=== PATIENT | female | born 1985 | race Caucasian/White ===

== ENCOUNTER 2018-10-03 15:02 | Inpatient (IN) | payer OTHER ==
[2018-10-03] MEDS: ACETAMINOPHEN 500 MG TAB PO (19:20)
[2018-10-03 19:40] LABS: ADD MAN DIFF? NO
[2018-10-03 19:43] LABS: BASOPHIL # 0.1 10^3/ul (0.0-0.1); BASOPHILS % 0.3 % (0.0-2.0); EOSINOPHILS # 0.1 10^3/ul (0.0-0.5); EOSINOPHILS % 0.4 % (0.0-7.0); HEMOGLOBIN 12.4 g/dl (12.0-16.0); LYMPHOCYTES # 2.7 10^3/ul (0.8-2.9); LYMPHOCYTES % 13.7 % (15.0-51.0); MEAN CORPUSCULAR HEMOGLOBIN 27.2 pg (29.0-33.0); MEAN CORPUSCULAR HGB CONC 34.4 g/dl (32.0-37.0); MEAN CORPUSCULAR VOLUME 78.9 fl (82.0-101.0); MEAN PLATELET VOLUME 11.7 fl (7.4-10.4); MONOCYTE # 1.1 10^3/ul (0.3-0.9); MONOCYTES % 5.5 % (0.0-11.0); NEUTROPHILS % 79.6 % (39.0-77.0); PLATELET COUNT 273 10^3/UL (140-415); RED BLOOD COUNT 4.56 10^6/ul (4.20-5.40); RED CELL DISTRIBUTION WIDTH 13.8 % (11.5-14.5)
[2018-10-03 19:50] LABS: ADD UMIC YES; UR ASCORBIC ACID NEGATIVE (NEGATIVE); UR BILIRUBIN (Dip) NEGATIVE (NEGATIVE); UR BLOOD (Dip) 3+ mg/dL (NEGATIVE); UR CLARITY CLEAR (CLEAR); UR COLOR STRAW (YELLOW); UR GLUCOSE (Dip) NEGATIVE (NEGATIVE); UR KETONES (Dip) NEGATIVE (NEGATIVE); UR LEUKOCYTE ESTERASE (Dip) NEGATIVE Leu/ul (NEGATIVE); UR NITRITE (Dip) NEGATIVE (NEGATIVE); UR RBC 0 /HPF (0-5); UR SPECIFIC GRAVITY (Dip) 1.011 (1.003-1.030); UR TOTAL PROTEIN (Dip) NEGATIVE (NEGATIVE); UR UROBILINOGEN (Dip) NEGATIVE (NEGATIVE); UR WBC 6 /HPF (0-5)
[2018-10-03 20:00] LABS: ALANINE AMINOTRANSFERASE 11 IU/L (13-69); ALBUMIN 4.5 g/dl (3.3-4.9); ALBUMIN/GLOBULIN RATIO 1.25; ALKALINE PHOSPHATASE 59 IU/L (42-121); ANION GAP 11 (5-13); ASPARTATE AMINO TRANSFERASE 17 IU/L (15-46); BILIRUBIN,INDIRECT 0.2 mg/dl (0-1.1); BILIRUBIN,TOTAL 0.2 mg/dl (0.2-1.3); BLOOD UREA NITROGEN 14 mg/dl (7-20); CALCIUM 9.8 mg/dl (8.4-10.2); CARBON DIOXIDE 26 mmol/L (21-31); CHLORIDE 102 mmol/L (97-110); CREATININE 0.74 mg/dl (0.44-1.00); Estimated GFR > 60 mL/min (>60); GLUCOSE 99 mg/dl (70-220); LIPASE 124 U/L (23-300); POTASSIUM 4.2 mmol/L (3.5-5.1); SODIUM 139 mmol/L (135-144); TOTAL PROTEIN 8.1 g/dl (6.1-8.1)
[2018-10-03] MEDS: SOD CHLORIDE 0.9% 100 ML (22:57)
[2018-10-03] MEDS: IOHEXOL 300MG/ML 150 ML BTL (22:57)
[2018-10-03] MEDS: PIPER-TAZO 3.375 GM IV (PMX) 100 ML IVPB (23:19)
[2018-10-03] MEDS: SOD CHLORIDE 0.9% 1,000 ML IV (23:19)
[2018-10-04] MEDS: IBUPROFEN 600 MG TAB PO ×3 (06:59→21:33)
[2018-10-04 07:00] LABS: C-REACTIVE PROTEIN 4.7 mg/dl (0.0-0.9)
[2018-10-04 07:01] LABS: ALANINE AMINOTRANSFERASE 8 IU/L (13-69); ALBUMIN 3.7 g/dl (3.3-4.9); ALBUMIN/GLOBULIN RATIO 1.15; ALKALINE PHOSPHATASE 47 IU/L (42-121); ANION GAP 8 (5-13); ASPARTATE AMINO TRANSFERASE 13 IU/L (15-46); BLOOD UREA NITROGEN 10 mg/dl (7-20); CALCIUM 9.1 mg/dl (8.4-10.2); CARBON DIOXIDE 22 mmol/L (21-31); CHLORIDE 110 mmol/L (97-110); Estimated GFR > 60 mL/min (>60); GLUCOSE 120 mg/dl (70-220); POTASSIUM 3.8 mmol/L (3.5-5.1); SODIUM 140 mmol/L (135-144); TOTAL PROTEIN 6.9 g/dl (6.1-8.1)
[2018-10-04 14:39] LABS: ADD UMIC YES; UR ASCORBIC ACID NEGATIVE (NEGATIVE); UR BILIRUBIN (Dip) NEGATIVE (NEGATIVE); UR BLOOD (Dip) 2+ mg/dL (NEGATIVE); UR CLARITY CLEAR (CLEAR); UR COLOR YELLOW (YELLOW); UR GLUCOSE (Dip) NEGATIVE (NEGATIVE); UR KETONES (Dip) NEGATIVE (NEGATIVE); UR LEUKOCYTE ESTERASE (Dip) NEGATIVE Leu/ul (NEGATIVE); UR NITRITE (Dip) NEGATIVE (NEGATIVE); UR RBC 9 /HPF (0-5); UR SPECIFIC GRAVITY (Dip) 1.015 (1.003-1.030); UR TOTAL PROTEIN (Dip) NEGATIVE (NEGATIVE); UR UROBILINOGEN (Dip) NEGATIVE (NEGATIVE); UR WBC 8 /HPF (0-5)
[2018-10-04] MEDS: PIPER-TAZO 3.375 GM IV (PMX) 100 ML IVPB ×2 (15:30→17:00)
[2018-10-04 18:58] LABS: ADD MAN DIFF? NO
[2018-10-04 19:02] LABS: BASOPHILS % 0.3 % (0.0-2.0); EOSINOPHILS # 0.3 10^3/ul (0.0-0.5); EOSINOPHILS % 2.4 % (0.0-7.0); HEMATOCRIT 31.2 % (37.0-47.0); HEMOGLOBIN 10.6 g/dl (12.0-16.0); LYMPHOCYTES # 1.6 10^3/ul (0.8-2.9); LYMPHOCYTES % 12.8 % (15.0-51.0); MEAN CORPUSCULAR HEMOGLOBIN 26.8 pg (29.0-33.0); MEAN CORPUSCULAR VOLUME 78.8 fl (82.0-101.0); MEAN PLATELET VOLUME 11.7 fl (7.4-10.4); MONOCYTES % 7.7 % (0.0-11.0); NEUTROPHIL # 9.7 10^3/ul (1.6-7.5); NEUTROPHILS % 76.4 % (39.0-77.0); PLATELET COUNT 222 10^3/UL (140-415); RED BLOOD COUNT 3.96 10^6/ul (4.20-5.40); RED CELL DISTRIBUTION WIDTH 13.7 % (11.5-14.5)
[2018-10-04 19:02] LABS: WHITE BLOOD COUNT 12.7 10^3/ul (4.8-10.8)
[2018-10-04] MEDS: FAMOTIDINE 20 MG TAB PO (20:54)
[2018-10-05] MEDS: PIPER-TAZO 3.375 GM IV (PMX) 100 ML IVPB ×4 (00:24→18:35)
[2018-10-05] MEDS: FAMOTIDINE 20 MG TAB PO ×2 (08:59→21:01)
[2018-10-06] MEDS: PIPER-TAZO 3.375 GM IV (PMX) 100 ML IVPB ×6 (00:02→23:45)
[2018-10-06 05:14] LABS: ADD MAN DIFF? NO
[2018-10-06 05:17] LABS: BASOPHILS % 0.4 % (0.0-2.0); EOSINOPHILS # 0.6 10^3/ul (0.0-0.5); EOSINOPHILS % 7.1 % (0.0-7.0); HEMOGLOBIN 9.4 g/dl (12.0-16.0); LYMPHOCYTES # 2.9 10^3/ul (0.8-2.9); LYMPHOCYTES % 37.5 % (15.0-51.0); MEAN CORPUSCULAR HEMOGLOBIN 26.5 pg (29.0-33.0); MEAN CORPUSCULAR HGB CONC 33.6 g/dl (32.0-37.0); MEAN CORPUSCULAR VOLUME 78.9 fl (82.0-101.0); MEAN PLATELET VOLUME 11.9 fl (7.4-10.4); MONOCYTE # 0.5 10^3/ul (0.3-0.9); MONOCYTES % 6.2 % (0.0-11.0); NEUTROPHIL # 3.7 10^3/ul (1.6-7.5); NEUTROPHILS % 48.5 % (39.0-77.0); PLATELET COUNT 207 10^3/UL (140-415); RED BLOOD COUNT 3.55 10^6/ul (4.20-5.40); RED CELL DISTRIBUTION WIDTH 13.6 % (11.5-14.5)
[2018-10-06 05:17] LABS: WHITE BLOOD COUNT 7.7 10^3/ul (4.8-10.8)
[2018-10-06] MEDS: FAMOTIDINE 20 MG TAB PO ×2 (08:01→20:08)
[2018-10-06] MEDS ORDERED: PROCHLORPERAZINE 10 MG INJ IV (10:30)
[2018-10-06] MEDS ORDERED: KETOROLAC 30 MG INJ IV (10:30)
[2018-10-06] MEDS ORDERED: FENTAnyl 50 MCG/ML VIAL IV ×3 (10:30)
[2018-10-06] MEDS ORDERED: DIPHENHYDRAMINE 50 MG INJ IV (10:30)
[2018-10-06] MEDS ORDERED: MEPERIDINE 25 MG INJ IV (10:30)
[2018-10-06] MEDS ORDERED: ONDANSETRON 4 MG INJ IV ×2 (10:30→19:00)
[2018-10-06] MEDS ORDERED: HYDROmorphONE 1 MG/5 ML IV SYRINGE IV ×3 (10:30)
[2018-10-06] MEDS ORDERED: LIDOCAINE 2% (SDV) 5 ML INJ (10:37)
[2018-10-06] MEDS ORDERED: PROPOFOL 20 ML (10:37)
[2018-10-06] MEDS ORDERED: ROPIVACAINE 0.5 % 30 ML VIAL (10:37)
[2018-10-06] MEDS ORDERED: ROCURONIUM 50 MG INJ (10:37)
[2018-10-06] MEDS ORDERED: SUCCINYLCHOLINE CHLORIDE 100 MG/5 ML SYG IV (10:37)
[2018-10-06] MEDS ORDERED: MIDAZOLAM 1 MG/ML 2 ML INJ (10:37)
[2018-10-06] MEDS ORDERED: FENTAnyl 50 MCG/ML VIAL (10:45)
[2018-10-06] MEDS ORDERED: CEFAZOLIN 1 GM INJ (10:59)
[2018-10-06] MEDS ORDERED: DEXAMETHASONE 4 MG/ML 5 ML INJ (11:01)
[2018-10-06] MEDS ORDERED: ONDANSETRON 4 MG INJ (11:01)
[2018-10-06] MEDS ORDERED: FAMOTIDINE 20 MG INJ (11:02)
[2018-10-06] MEDS ORDERED: HYDROmorphONE 2 MG/ML SYG (11:46)
[2018-10-06] MEDS ORDERED: NEOSTIGMINE 3 MG/3 ML SYRINGE ×2 (11:55→11:59)
[2018-10-06] MEDS ORDERED: GLYCOPYRROLATE 0.4 MG INJ ×2 (11:55→11:59)
[2018-10-06] MEDS ORDERED: OXYCODONE/ACETAMINOPHEN (5/325) TAB PO (12:30)
[2018-10-06] MEDS ORDERED: IBUPROFEN 600 MG TAB NGT (16:30)
[2018-10-06] MEDS: IBUPROFEN 600 MG TAB PO (23:39)
[2018-10-07] MEDS: PIPER-TAZO 3.375 GM IV (PMX) 100 ML IVPB ×2 (06:10→11:22)
[2018-10-07] MEDS: FAMOTIDINE 20 MG TAB PO (08:34)
[2018-10-07] MEDS: IBUPROFEN 600 MG TAB PO (09:27)
== END 2018-10-07 13:16 | disposition home or self-care (01) | DRG 743 ==
LOC: E/R 15:02 → MS1 10-04 04:11
PROC: 0UB14ZZ Excision of Left Ovary, Percutaneous Endoscopic Approach (ICD-10-PCS; principal; 2018-10-06 10:30)
DX: N83.202 Unspecified ovarian cyst, left side (principal); N80.1 Endometriosis of ovary; D25.9 Leiomyoma of uterus, unspecified
CPT/HCPCS: 36415; 74176; 74177; 76830; 76856; 80053; 81001; 81025; 83690; 85025; 86140; 86304; 87086; 88104; 88305; 96374; 99285-25